=== PATIENT | female | born 1945 | race Caucasian/White ===

== ENCOUNTER → 2020-12-17 | Outpatient (CLI) | payer MEDICARE, OTHER | LOC: CT 14:12 | PROVIDERS: ATTEND Emergency Medicine | DX: R10.9 Unspecified abdominal pain (principal) | CPT/HCPCS: 74176 ==

== ENCOUNTER 2024-12-08 15:06 | Emergency (ER) | payer MEDICARE, OTHER ==
[~2024-12-08] VITALS: Ht 172.7 cm; Wt 54.4 kg
[2024-12-08 16:31] LABS: CORONAVIRUS COVID-19 AG POSITIVE (NEGATIVE)
[2024-12-08 16:37] VITALS: PULSE 80; RESP 16; TEMP 98.8; O2SAT 100
[2024-12-08] MEDS ORDERED: PAXLOVID 300-11 EAC1 PO (16:44)
== END 2024-12-08 16:56 | disposition home or self-care (01) ==
LOC: ER 15:19
DX: R09.89 Other specified symptoms and signs involving the circulatory and respiratory systems (principal); U07.1 COVID-19; Z85.828 Personal history of other malignant neoplasm of skin
CPT/HCPCS: 83518; 87070; 99283